=== PATIENT | female | born 1950 | race Two or more races ===

== ENCOUNTER 2022-10-06 20:16 | Emergency (ER) | payer OTHER ==
[~2022-10-06] VITALS: Ht 160 cm; Wt 86.5 kg
[2022-10-07] MEDS ORDERED: ACET500T58 PO (01:05)
[2022-10-07 02:05] VITALS: BP 138/64
== END 2022-10-07 02:05 | disposition home or self-care (01) ==
LOC: ER 20:16
DX: S16.1XXA Strain of muscle, fascia and tendon at neck level, initial encounter (principal); S39.012A Strain of muscle, fascia and tendon of lower back, initial encounter; S20.219A Contusion of unspecified front wall of thorax, initial encounter; E11.9 Type 2 diabetes mellitus without complications; E78.5 Hyperlipidemia, unspecified; I10 Essential (primary) hypertension; V43.62XA Car passenger injured in collision with other type car in traffic accident, initial encounter; Y93.89 Activity, other specified; Y92.488 Other paved roadways as the place of occurrence of the external cause; Y99.8 Other external cause status
CPT/HCPCS: 71046; 72040; 72100; 72125; 93005